=== PATIENT | male | born 1950 | race Caucasian/White ===

== ENCOUNTER → 2017-06-15 | Outpatient (CLI) | payer MEDICARE, BC, OTHER ==
--- NOTE | 2017-06-15 15:22 | RAD ---
EXAM DESCRIPTION: Knee,Left Complete CLINICAL HISTORY: 66 years, Male, PAIN IN LEFT KNEE COMPARISON: None TECHNIQUE: Four views of the left knee FINDINGS: Mild marginal osteophyte formation and mild sclerosis and narrowing of the medial joint compartment is evident with the possibility of small intra-articular loose bodies suggested in the medial joint compartment and posterior to the femoral condyles on the lateral view. Small joint effusion is present. Irregularity of the anterior patellar cortical surface is present with mild soft tissue thickening noted in the prepatellar region without a distinct bursal effusion. IMPRESSION: 1. Small joint effusion with modest degenerative changes involving the medial joint compartment and questionable small intra-articular loose bodies. Electronically signed by: Dano Liu MD 06/15/2017 3:21 PM [facility]
--- NOTE | 2017-06-15 15:23 | RAD ---
EXAM DESCRIPTION: Pelvis CLINICAL HISTORY: 66 years Male, PAIN IN LEFT HIP COMPARISON: None. FINDINGS: Single view of the pelvis demonstrates the SI joints are intact and asymmetric essentially normal appearance of the hips. A distinct joint effusion or mass or other abnormalities are not apparent. No fracture or dislocation is seen in the joint spaces well preserved. IMPRESSION: Pelvis and left hip with no specific abnormality noted. Electronically signed by: Dano Liu MD 06/15/2017 3:22 PM [facility]
== END | disposition home or self-care (01) ==
LOC: RAD 08:51
PROVIDERS: ATTEND Orthopaedic Surgery
DX: M25.562 Pain in left knee (principal); M25.552 Pain in left hip

== ENCOUNTER 2019-03-23 05:40 | Day surgery (SDC) | payer MEDICARE, OTHER ==
[2019-03-23] MEDS ORDERED: DEXAMETHASONE INJ 10 MG/ML VIAL ONE (07:00)
[2019-03-23] MEDS ORDERED: PROPOFOL 200 MG/20 ML VIAL IV ONE (07:00)
[2019-03-23] MEDS ORDERED: raNITIdine HCL INJ 25 MG/ML VIAL ONE (07:00)
[2019-03-23] MEDS ORDERED: ONDANSETRON INJ 4 MG/2 ML VIAL ONE (07:00)
[2019-03-23] MEDS ORDERED: ePHEDrine SULF 50 MG/ML ONE (07:00)
[2019-03-23] MEDS ORDERED: SODIUM CHLORIDE 0.9% 50 ML VIAL ONE (07:00)
[2019-03-23] MEDS ORDERED: ceFAZolin SODIUM 1 GM VIAL ONE (07:00)
[2019-03-23] MEDS ORDERED: LACTATED RINGERS 1,000 ML ONE (07:18)
[2019-03-23] MEDS ORDERED: BUPIVACAINE 0.25% W/EPI 50 ML VIAL INJ ONE (11:37)
[2019-03-23] MEDS ORDERED: MIDAZOLAM INJ 2 MG/2 ML VIAL ONE (12:42)
[2019-03-23] MEDS ORDERED: SUGAMMADEX SODIUM 200 MG/2 ML VIAL IV ONE (12:42)
[2019-03-23] MEDS ORDERED: KETAMINE HCL 100 MG/ML VIAL ONE (12:42)
[2019-03-23] MEDS ORDERED: ROCURONIUM BROMIDE 10 MG/ML VIAL ONE ×2 (12:43→13:50)
[2019-03-23] MEDS ORDERED: fentaNYL CITRATE INJ 50 MCG/ML AMP ONE ×2 (12:43→13:37)
[2019-03-23] MEDS ORDERED: ELECTROLYTE-A 1,000 ML IVS ONE (14:23)
--- NOTE | 2019-03-23 15:00 | OP ---
DATE OF PROCEDURE: 03/23/19 PREOPERATIVE DIAGNOSIS: 1. Right inguinal hernia. 2. Right posterior cervical neck mass. POSTOPERATIVE DIAGNOSIS: 1. 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 2. 5 cm posterior neck mass. PROCEDURE: 1. Repair of right inguinal hernia. 2. Removal of 3 cm retroperitoneal tumor. 3. Removal of 5 m subcutaneous posterior neck pain to the muscle, not invading. 4. Right ilioinguinal nerve block. SURGEON: Armando Pitts MD. ANESTHESIA: General and local. FINDINGS: As described. PLAN: Discharge. INDICATION: As stated. PROCEDURE: General anesthesia was induced. She was prepped and draped in sterile fashion. 3 cc of 0.5% Marcaine with epinephrine were used to perform an ilioinguinal nerve block based on the anatomy and the ASIS was injected and withdrawn in multiple places. The incision was then anesthetized. Incision was made. Subcutaneous tissues were taken down. The external oblique aponeurosis was identified. A mily was made. It was undermined along its fibers, opening up. The ilioinguinal nerve was identified, kept dissected inferiorly and spared. The cord was isolated. There was a fatty tumor coming from the internal ring. This was removed and ligated at its base. We then identified a small moderate sized sac that was dissected down to the base. There was an obvious direct component, but without a true perforation through the floor at this point. We used 3 moist RayTec sponges to create the preperitoneal plane and with finger sweeps and [employer] keeping the epigastric vessels anteriorly, we then placed a Large PHS mesh. We carefully laid it out. It was lying nice and flat underneath the direct defect inferiorly, laterally and superiorly. The tissue over the direct defect was closed from the shelving edge onto the conjoint tendon with 3 or 4 interrupted Vicryl sutures. That went well. The mesh was then secured to the tubercle, wrapped around the cord nonstricturing, secured to the shelve edge and then laid out laterally in line with external oblique. The nerve was then placed and kept safe. The external oblique was closed with running 2-0 Vicryl, then 1, then 2 more layers for absorbable suture. He was then placed in lateral position. The mass in the neck was firm, but on office examination, it appeared nonfixed. A vertical incision was made. Subcutaneous tissues were taken down to identify the firm capsule. Underneath this capsule was soft pliable fatty tissue. Some of the firmness of the capsule was removed. We removed all the fat and fatty tumor that we could find. It did go down to the paraspinous tissue, but not into the muscle itself. There was no evidence of any significant nerve or vascular structures in the area. We put local in the area. There was good hemostasis. It was closed in 2 layers and dressing applied. He was awakened and taken to Recovery to be discharged. #[id number] [facility]
[2019-03-23] MEDS ORDERED: HYDROcodone 5MG/APAP 325MG 1 EA TAB ONE (15:50)
[2019-03-23 16:49] VITALS: TEMP 97.3; O2SAT 95
[2019-03-23 16:50] VITALS: BP 149/75
== END 2019-03-23 16:45 | disposition home or self-care (01) ==
LOC: AMB 05:40
PROVIDERS: ATTEND Surgery
DX: K40.90 Unilateral inguinal hernia, without obstruction or gangrene, not specified as recurrent (principal); D17.6 Benign lipomatous neoplasm of spermatic cord; D17.0 Benign lipomatous neoplasm of skin and subcutaneous tissue of head, face and neck; E11.9 Type 2 diabetes mellitus without complications; E78.00 Pure hypercholesterolemia, unspecified; Z79.84 Long term (current) use of oral hypoglycemic drugs; Z79.899 Other long term (current) drug therapy
CPT/HCPCS: 00830; 21555; 36416; 49505; 82948; 88304; A4216; J0690; J1100; J2250; J2405; J2780; J3010; J3490; J7120

== ENCOUNTER 2019-06-16 05:31 | Day surgery (SDC) | payer MEDICARE, OTHER ==
[2019-06-16] MEDS ORDERED: LACTATED RINGERS 1,000 ML ONE (07:05)
[2019-06-16] MEDS ORDERED: PROPOFOL 200 MG/20 ML VIAL IV ONE (10:00)
[2019-06-16] MEDS ORDERED: LIDOCAINE 1% 10 ML VIAL INJ ONE (10:00)
[2019-06-16] MEDS ORDERED: LACTATED RINGERS 1,000 ML IVS ONE (11:15)
[2019-06-16] MEDS ORDERED: MIDAZOLAM INJ 2 MG/2 ML VIAL ONE (12:02)
[2019-06-16] MEDS ORDERED: fentaNYL CITRATE INJ 50 MCG/ML AMP ONE (12:02)
[2019-06-16 12:51] VITALS: BP 107/54; TEMP 97.5; O2SAT 92
--- NOTE | 2019-06-16 17:54 | OP ---
DATE OF PROCEDURE: 06/16/19 PREOPERATIVE DIAGNOSIS: 1. Screening colonoscopy. POSTOPERATIVE DIAGNOSIS: 1. Normal colon. PROCEDURE: 1. Complete colonoscopy. SURGEON: Armando Pitts M.D. ANESTHESIA: General. FINDINGS: There are no abnormalities or polyps seen in colonoscopy, the terminal ileum and the appendiceal orifice were identified. COMPLICATIONS: None. PLAN: Discharge. INDICATION: Stated procedure. PROCEDURE: The patient reported an adequate prep. He was brought to the Operating Suite. Anesthesia was induced. Digital rectal exam was normal, but for some apparent non-thrombosed hemorrhoids. The colonoscope was introduced without difficulty and then passed all the way to the cecum with minimal difficulty. Upon careful withdrawal and occasional irrigation, no polyps were identified. On retroflexion in the rectum, he did have some small hemorrhoids. The scope was then withdrawn. There was no evidence of complications. He was taken to recovery to be discharged and a next screening colonoscopy in 10 years. #[id number] [facility]
== END 2019-06-16 13:25 | disposition home or self-care (01) ==
LOC: AMB 05:31
PROVIDERS: ATTEND Surgery
DX: Z12.11 Encounter for screening for malignant neoplasm of colon (principal); K64.8 Other hemorrhoids; E11.9 Type 2 diabetes mellitus without complications; E78.00 Pure hypercholesterolemia, unspecified; M19.90 Unspecified osteoarthritis, unspecified site; Z79.84 Long term (current) use of oral hypoglycemic drugs; Z79.899 Other long term (current) drug therapy
CPT/HCPCS: 00812; 36416; 82948; G0121; J2250; J3010; J3490; J7120